=== PATIENT | male | born 1980 | race African-American/Black ===

== ENCOUNTER 2020-09-28 11:04 | Emergency (ER) | payer OTHER ==
[~2020-09-28] VITALS: Ht 182.9 cm; Wt 99.8 kg
[2020-09-28] MEDS ORDERED: SEROQUEL XR 30300 M1 PO ×2 (11:19→12:27)
[2020-09-28 11:44] LABS: BASOPHILS 0.5 % (0.0-2.0); EOSINOPHILS 0.5 % (0.0-3.0); HEMOGLOBIN 14.4 gm/dL (14.0-18.0); LYMPHOCYTES 18.6 % (24.0-44.0); MCHC 32.8 g/dL (28.0-37.0); MCV 85.5 fL (80.0-100.0); MONOCYTES 10.5 % (1.0-8.0); PLATELET COUNT 207 thou/uL (150-400); POLYS 69.9 % (36.0-66.0); RBC 5.14 mil/uL (4.50-6.00); RDW 15.6 % (10.5-14.5)
[2020-09-28 12:17] LABS: ANION GAP 11 mmol/L (7-16); BUN 10 mg/dL (7-18); CALCIUM 9.2 mg/dL (8.5-10.1); CHLORIDE 102 mmol/L (98-107); CO2 23 mmol/L (21-32); CREATININE 0.8 mg/dL (0.7-1.3); GLUCOSE 75 mg/dL (74-106); SODIUM 136 mmol/L (136-145)
[2020-09-28] MEDS ORDERED: PROPRANOLOL 4040 MG PO (12:27)
[2020-09-28 12:28] LABS: SGOT 30 U/L (15-37); SGPT 46 U/L (16-63); TOTAL PROTEIN 7.2 g/dL (6.4-8.2); TROPONIN-I <0.06 ng/mL (<0.06)
[2020-09-28 12:57] VITALS: BP 112/82
--- NOTE | 2020-09-28 15:38 | EKG ---
[address] [address] ELECTROCARDIOGRAM REPORT Name: RODOLFO CONTRERAS Room #: DEP Jesús#: [id number] Admission: 09/28/20 Attend Phys: Discharge: 09/28/20 Date of : 78 Report #: [id number] [facility] ED Test Date: 2020-09-28 Test Time: 11:39:46 Pat Name: RODOLFO CONTRERAS Department: Room: Gender: Fruit Room Hand: wilma : 1980 Requested By: Sabino Cee Order Number: [id number] MD: Sourav Cronin Measurements Intervals [place] Rate: 84 P: 22 NH: 130 QRS: 46 QRSD: 102 T: 21 QT: 390 QTc: 462 Interpretive Statements Sinus rhythm No previous ECG available for comparison Electronically Signed On 09-28-2020 15:38:19 CDT by Sourav Cronin [email or web address] <ELECTRONICALLY SIGNED> By: Sourav Cronin MD, [facility] 09/28/20 1538 [id number] Sourav Cronin MD, FACC /EPI
== END 2020-09-28 13:01 | disposition home or self-care (01) ==
LOC: ER 11:04
PROVIDERS: Emergency Medicine
DX: R44.0 Auditory hallucinations (principal); R44.1 Visual hallucinations; Z79.899 Other long term (current) drug therapy